=== PATIENT | male | born 1955 | race African-American/Black ===

== ENCOUNTER 2018-10-15 09:08 | Emergency (ER) ==
[2018-10-15 09:18] VITALS: BP 180/96; TEMP 98.5; BMI 30.5
--- NOTE | 2018-10-15 09:57 | ED.PDOC ---
General ED Provider: Dr. RUTH BALL Chief Complaint: Abdominal Pain Stated Complaint: 63 y old male dreveloped yesterday an abdominal pain after eating at the restaurant. Time Seen by Physician: 09:25 Mode of Arrival: Walk-In Information Source: Patient Exam Limitations: No limitations Primary Care Provider: CARLIN GRAY Nursing and Triage Documentation Reviewed and Agree: Yes Does patient meet sepsis criteria?: No System Inflammatory Response Syndrome: Not Applicable Sepsis Protocol: For patient's 13 years and over: Temp is 96.8 and below OR 101 and greater Pulse >90 BPM Resp >20/minute Acutely Altered Mental Status Are patient's symptoms suggestive of a new infection, such as: -Pneumonia -Skin, Soft Tissue -Endocarditis -UTI -Bone, Joint Infection -Implantable Device -Acute Abdominal Infection -Wound Infection -Meningitis -Blood Stream Catheter Infection -Unknown GI Complaint Exam - Abdominal Pain Complaint/Exam Onset: Sudden Duration: yesterday and subsided todau Symptoms Are: Resolved Timing: Intermittent Initial Severity: Mild Current Severity: Mild Location of Pain: LLQ Radiates To: Reports: LLQ Character: Reports: Dull Aggravating: Reports: None Alleviating: Reports: Rest, Spontaneous resolution Associated Signs and Symptoms: Reports: Constipation AAA Risk Factors: Reports: Hypertension Cardiac Risk Factors: Reports: Hypertension Testicular Torsion Risk Factors: Reports: None Surgical Obstruction Risk Factors: Reports: None Related Surgical History: Reports: None Abdominal Findings: Present: None Differential Diagnoses: Constipation, Gastroenteritis Review of Systems - Review Of Systems Constitutional: Reports: No symptoms Eyes: Reports: No symptoms Ears, Nose, Mouth, Throat: Reports: No symptoms Respiratory: Reports: No symptoms Cardiac: Reports: No symptoms GI: Reports: Constipated : Reports: No symptoms Musculoskeletal: Reports: No symptoms Skin: Reports: No symptoms Neurological: Reports: No symptoms Endocrine: Reports: No symptoms Hematologic/Lymphatic: Reports: No symptoms All Other Systems: Reviewed and Negative Past Medical History - Past Medical History Previously Healthy: Yes Endocrine: Reports: Unknown Cardiovascular: Reports: None Respiratory: Reports: None Hematological: Reports: None Gastrointestinal: Reports: None Genitourinary: Reports: None Neuro/Psych: Reports: None Musculoskeletal: Reports: None Cancer: Reports: None - Surgical History General Surgical History: Reports: None - Family History Family History: Reports: None - Social History Smoking Status: Never smoker Hx Substance Use: No Alcohol Screening: None - Immunizations Tetanus Shot up to Date: Yes Physical Exam - Physical Exam Appearance: Well-appearing Ill-appearing: None Pain Distress: None Eyes: THOM, EOMI, Conjunctiva clear ENT: Ears normal, Nose normal, Oropharynx normal Neck: Supple Respiratory: Airway patent, Breath sounds clear, Breath sounds equal Cardiovascular: RRR, Pulses normal, No rub, No murmur GI/: Soft, Nontender Musculoskeletal: Normal strength Skin: Warm, Dry Neurological: Sensation intact, Motor intact, Reflexes intact, Alert, Oriented Psychiatric: Affect appropriate Critical Care Note - Critical Care Note Total Time (mins): 0 Course - Course Vital Signs: Temp Pulse Resp BP Pulse Ox 10/15/18 09:11 98.5 F 49 L 18 180/96 H 97 Departure - Departure Time of Disposition: 10:25 Disposition: HOME SELF-CARE Discharge Problem: Enteritis Instructions: Constipation (ED) Condition: Good Pt referred to PMD for follow-up: No IPMP verified?: No Additional Instructions: Bisacodyl 5 mg tab bid prn constipatio.ight diet upgrade gradualy over 3 days- dsicussed with the patient. Allergies/Adverse Reactions: Allergies No Known Allergies Allergy (Unverified 10/15/18 09:25) Home Medications: Ambulatory Orders Aspirin [Aspir-Low] 81 mg PO DAILY 10/15/18 Carvedilol 0.025 mg PO BID 10/15/18 Digoxin 250 mcg PO DAILY 10/15/18 Leuprolide Acetate [Lupron Depot] 22.5 mg IM DIRECTED 10/15/18 Metformin HCl [Fortamet] 500 mg PO BID 10/15/18 Quinapril HCl 35 mg PO DAILY 10/15/18 Spironolactone 25 mg PO DAILY 10/15/18 Disposition Discussed With: Patient
[2018-10-15] MEDS ORDERED: DULCOLAX PO PRN (10:23)
== END 2018-10-15 10:35 | disposition home or self-care (01) ==
LOC: ED 09:08
DX: K59.00 Constipation, unspecified (principal); R10.32 Left lower quadrant pain; K52.9 Noninfective gastroenteritis and colitis, unspecified
CPT/HCPCS: 99282